=== PATIENT | female | born 1955 | race Caucasian/White ===

== ENCOUNTER 2019-06-07 10:05 | Outpatient (CLI) | payer OTHER | END 2019-06-07 10:08 | disposition home or self-care (01) | LOC: RAD 10:05 | DX: R91.8 Other nonspecific abnormal finding of lung field (principal) ==

== ENCOUNTER 2022-09-24 14:24 | Outpatient (CLI) | payer OTHER | END 2022-09-24 14:26 | disposition home or self-care (01) | LOC: SONOGRAMA 14:24 | PROVIDERS: ATTEND Internal Medicine Endocrinology, Diabetes & Metabolism | DX: E04.2 Nontoxic multinodular goiter (principal) ==

== ENCOUNTER 2023-05-15 14:23 | Outpatient (CLI) | payer OTHER | END 2023-05-15 14:32 | disposition home or self-care (01) | LOC: SONOGRAMA 14:23 | PROVIDERS: ATTEND Internal Medicine | DX: E04.1 Nontoxic single thyroid nodule (principal) ==

== ENCOUNTER 2024-03-05 07:40 | Outpatient (CLI) | payer OTHER | END 2024-03-05 07:54 | disposition home or self-care (01) | LOC: SONOGRAMA 07:40 | PROVIDERS: ATTEND Obstetrics & Gynecology | DX: R10.11 Right upper quadrant pain (principal) ==

== ENCOUNTER 2024-05-15 10:35 | Outpatient (CLI) | payer OTHER | END 2024-05-15 10:40 | disposition home or self-care (01) | LOC: RAD 10:35 | DX: M25.511 Pain in right shoulder (principal); M25.512 Pain in left shoulder ==